=== PATIENT | female | born 1950 | race Caucasian/White ===

== ENCOUNTER 2020-11-04 08:25 | Outpatient (CLI) | payer MEDICARE, SELFPAY ==
--- NOTE | ~2020-11-04 | US_ITS ---
EXAMINATION: US thyroid DATE: 11/04/2020 10:26 INDICATION: Thyroid nodule. TECHNIQUE: Multiple ultrasound images of the thyroid were obtained. COMPARISON: Studies dated 06/27/2015, 11/26/2015 and 06/10/2017 FINDINGS: The right thyroid lobe measures 5.4 x 2.9 x 2.8 cm. The left thyroid lobe measures 2.9 x 2.3 x 1.2 c m. Thyroid isthmus measures 2 mm in thickness. With previously appeared to be a single solid nodule in the right thyroid lobe with prior nondiagnostic biopsy is comprised of 2 separate wider than tall solid, iso to slightly hypoechoic nodules with smooth margins, the more medial measuring 3.5 x 2.0 x 2.7 cm and the more lateral measuring 2.8 x 1.5 x 1.5 cm. There is a coarse calcification within the more lateral nodule. Both nodules are consistent with TI-RADS 4 nodules (moderately suspicious , FNA if >=1.5 cm, annual followup is >=1 cm). There is an additional wider than tall predominantly solid m ore hypoechoic nodule with smooth margins in the left thyroid lobe measuring 3.1 x 2.2 x 1.4 cm, also TI RADS 4. This has increased since the prior study at which time it measured 2.8 x 1.6 x 1.4 cm. Th ere is normal echotexture, echogenicity and vascular flow throughout the remainder of the thyroid gla nd. IMPRESSION: 1. Three TI-RADS 4 nodules, the 2 nodules on the right with prior nondiagnostic biopsy and one on the left which has increased in size since the prior study with prior biopsy read as suspicious for fol licular neoplasm, Hurthle cell (oncocytic) type. All 3 nodules meet criteria for ultrasound-guided bi opsy and each demonstrate features favoring selection for biopsy, one with coarse calcification altho ugh still TI-RADS 4, yielding the highest score, the second the largest in size of the 3 nodules and the third nodule with significant interval growth. It was therefore elected to biopsy all 3 nodules. See separate biopsy report for further detail. Reviewed, dictated and finalized at location A. IMPRESSION: 1. Three TI-RADS 4 nodules, the 2 nodules on the right with prior nondiagnostic biopsy and one on the left which has increased in size since the prior study w ith prior biopsy read as suspicious for follicular neoplasm, Hurthle cell (onc ocytic) type. All 3 nodules meet criteria for ultrasound-guided biopsy and each demonstrate features favoring selection for biopsy, one with coarse calcificat ion although still TI-RADS 4, yielding the highest score, the second the larges t in size of the 3 nodules and the third nodule with significant interval growt h. It was therefore elected to biopsy all 3 nodules. See separate biopsy report for further detail.
--- NOTE | ~2020-11-04 | US_ITS ---
EXAMINATION: US FNA w image guidance, US FNA additional, US FNA additional DATE: 11/04/2020 10:17 INDICATION: Thyroid nodules and unspecified disorder adrenal gland. TECHNIQUE: A time-out was performed to verify the patient's name, date of , and procedure to be performed . The procedure and its benefits and risks were discussed with the patient. Risks specifically discus sed included bleeding and infection. The patient understood the risks and agreed to proceed. The neck was prepped and draped in the usual sterile manner. Attention was first turned to the left thyroid n odule. 2 mL 1% lidocaine was used for local anesthesia. 5 passes were made with a 25G needle into th e lesion. Appropriate needle location was documented with continuous sonographic guidance. Attention was then turned to the 2 right-sided thyroid nodules. 3 mL 1% lidocaine was used for local anesthesi a. . 5 passes were made with a 25G needle into first the more lateral right thyroid nodule containin g the coarse calcification. Subsequently 5 passes were made with a 20 5G needle into the larger and m ore medial of the 2 right thyroid nodules. Appropriate needle location was documented with continuous sonographic guidance. Sterile bandages were applied. There were no immediate complications. FINDINGS: Grayscale ultrasound images demonstrate biopsy needles advanced into first the TI RADS 4 left thyroid nodule and subsequently both the more medial and then the more lateral of the two TI-RADS 4 right th yroid nodules. These nodules measured 3.1 cm, 2.8 cm and 3.5 cm in maximal diameters respectively on the immediately prior thyroid ultrasound. IMPRESSION: 1. Successful ultrasound-guided fine needle aspiration of an enlarging 3.1 cm TI-RADS 4 left thyroid nodule. 2. Successful ultrasound-guided fine-needle laceration of a more medial 3.5 cm TI-RADS 4 right thyroi d nodule. 3. Successful ultrasound-guided fine-needle laceration of a more lateral 2.8 cm coarse calcification containing TI-RADS 4 right thyroid nodule. Reviewed, dictated and finalized at location A. IMPRESSION: 1. Successful ultrasound-guided fine needle aspiration of an enlarging 3.1 cm TI-RADS 4 left thyroid nodule. 2. Successful ultrasound-guided fine-needle laceration of a more medial 3.5 cm TI-RADS 4 right thyroid nodule. 3. Successful ultrasound-guided fine-needle laceration of a more lateral 2.8 cm coarse calcification containing TI-RADS 4 right thyroid nodule. IMPRESSION: 1. Successful ultrasound-guided fine needle aspiration of an enlarging 3.1 cm TI-RADS 4 left thyroid nodule. 2. Successful ultrasound-guided fine-needle laceration of a more medial 3.5 cm TI-RADS 4 right thyroid nodule. 3. Successful ultrasound-guided fine-needle laceration of a more lateral 2.8 cm coarse calcification containing TI-RADS 4 right thyroid nodule.
== END 2020-11-04 08:26 | disposition home or self-care (01) ==
LOC: ANHIMG 08:31
PROVIDERS: PCP Family Medicine; Visit Provider Internal Medicine Endocrinology, Diabetes & Metabolism
DX: E04.1 Nontoxic single thyroid nodule (principal); E27.8 Other specified disorders of adrenal gland; E05.90 Thyrotoxicosis, unspecified without thyrotoxic crisis or storm; M81.0 Age-related osteoporosis without current pathological fracture
CPT/HCPCS: 10005; 10006; 76536; 88173; 88305

== ENCOUNTER 2022-02-04 00:36 | Day surgery (SDC) | payer MEDICARE, SELFPAY ==
[2021-12-18 14:15] VITALS: BMI 23.0
[2022-01-19 14:34] VITALS: BMI 23.0
[2022-02-04 11:05] VITALS: BP 126/60; PULSE 90; RESP 20; TEMP 36.3; O2SAT 98; BMI 22.4
[2022-02-04] MEDS: LACTATED RINGERS 1,000 ML 150 ML IV CONT (11:15)
--- NOTE | 2022-02-04 12:13 | WPDANESEPPF ---
Anes - Initial Pre Proc Eval Procedure: Operation Date: 02/04/22 12:30 Proposed Procedures p Esophagogastroduodenoscopy & Screening Colonoscopy - Isaac Dunbar MD Date/Time: 02/04/22 12:13 Surgeon: Isaac Dunbar MD Pre Op Diagnosis: dysphagia, hx colon polyps Patient Data Age: 71 Gender: F Height: 1.65 m Weight: 61 kg Last Vital Signs Temp 97.4 F L 02/04/22 11:05 Pulse 90 02/04/22 11:05 Resp 20 02/04/22 11:05 BP 126/60 02/04/22 11:05 Pulse Ox 98 02/04/22 11:05 O2 Del Method Room Air 02/04/22 11:05 Allergies Allergy/AdvReac Type Severity Reaction Status Date / Time Penicillins Allergy Unknown UNKOWN Verified 02/04/22 10:58 Sulfa (Sulfonamide Allergy Unknown UNKNOWN Verified 02/04/22 10:58 Antibiotics) Home Medications Medication Instructions Recorded Confirmed Type amlodipine 5 mg tablet 5 mg PO DAILY 10/24/19 12/18/21 History metoprolol succinate 50 mg 75 mg PO DAILY 10/29/20 12/18/21 History tablet,extended release 24 hr alendronate 70 mg tablet (Fosamax) 70 mg PO WEEKLY 08/12/21 12/18/21 History atorvastatin 10 mg tablet (Lipitor) 10 mg PO QHS 08/12/21 12/18/21 History methimazole 5 mg tablet See Rx Instructions .Route 12/17/21 12/18/21 Rx .COMPLEX #90 tabs Patient hx anesthesia problems: none Family hx anesthesia problems: none Results Review: All pre-operative results and documents have been reviewed as part of the pre-operative evaluation. [facility] Surgical History Surgical History Hx of cholecystectomy Family History Family History Other Family history of cardiovascular disease Family history of hearing loss Family history of malignant neoplasm Family history of mental disorder Family history of osteoporosis Hypertension Social History Social History Smoking status: Never smoker Alcohol intake: current Substance use type: does not use Living arrangements: with family Katelyn Mccartney Final PreProcedure Day of Procedure 02/04/22 12:13 Patient weight: normal Heart: regular rate and rhythm Lungs: clear to auscultation Airway: Mallampati scale class II Neurological: alert and oriented Last oral intake: >/= 8 hours ASA classification: III Emergent: no Anesthetic plan: proceed Anesthesia type and monitoring: general GIVS and standard monitoring Results Review: All pre-operative results and documents have been reviewed as part of the pre-operative evaluation. Informed Consent: The patient's anesthetic plan and its attendant risks and benefits were discussed with the patient/family/POA. Questions were solicited and answers provided to the satisfaction of the patient/family/POA.
--- NOTE | 2022-02-04 12:26 | PM.HPGS ---
History of Present Illness History of Present Illness Consent: Risks, benefits, and alternatives have been discussed and questions answered. Patient agrees to proceed with procedure. Chief complaint: dysphagia, hx colon polyps Narrative: Yasmeen Garcia is a 71 year old female with history of esophageal ring dilated few years ago lately with dysphagia again, also mother had esophageal cancer. Brother had colon cancer, last colonoscopy in 2017. Review of Systems Constitutional: Constitutional: Denies headache(s) and Denies weakness Eyes: Eyes: Denies blurry vision ENT: Reports Normal hearing present, Denies headache(s) and Denies neck pain Cardiovascular: Cardiovascular: Denies chest pain and Denies dyspnea Respiratory: Respiratory: Denies dyspnea Gastrointestinal: Gastrointestinal: Reports no additional gastrointestinal complaints Genitourinary: Genitourinary: Denies dysuria Musculoskeletal: Musculoskeletal: Denies neck pain Integumentary/Breasts: Skin/Breast: Denies dry skin Neurologic: Reports Normal hearing present, Denies headache(s) and Denies weakness Psychiatric: Psychiatric: Denies anxiety Endocrine: Endocrine: Denies change in body appearance Hematologic/Lymphatic: Hematologic/Lymphatic: Denies easy bleeding Allergic/Immunologic: Allergic/Immunologic: Denies urticaria PMFSH Past Medical History Medical History (Updated 02/04/22 @ 12:27 by Isaac Dunbar MD) Dysphagia Family history of colon cancer Surgical History Surgical History Hx of cholecystectomy Family History Family History Other Family history of cardiovascular disease Family history of hearing loss Family history of malignant neoplasm Family history of mental disorder Family history of osteoporosis Hypertension Social History Social History Smoking status: Never smoker Alcohol intake: current Substance use type: does not use Living arrangements: with family Meds Home Medications and Allergies Home Medications Medication Instructions Recorded Confirmed Type amlodipine 5 mg tablet 5 mg PO DAILY 10/24/19 12/18/21 History metoprolol succinate 50 mg 75 mg PO DAILY 10/29/20 12/18/21 History tablet,extended release 24 hr alendronate 70 mg tablet (Fosamax) 70 mg PO WEEKLY 08/12/21 12/18/21 History atorvastatin 10 mg tablet (Lipitor) 10 mg PO QHS 08/12/21 12/18/21 History methimazole 5 mg tablet See Rx Instructions .Route 12/17/21 12/18/21 Rx .COMPLEX #90 tabs Allergies Allergy/AdvReac Type Severity Reaction Status Date / Time Penicillins Allergy Unknown UNKOWN Verified 02/04/22 10:58 Sulfa (Sulfonamide Allergy Unknown UNKNOWN Verified 02/04/22 10:58 Antibiotics) Vital Signs Vital Signs - 24 hr 02/04/22 11:05 Temperature 97.4 F L Pulse Rate 90 Respiratory Rate 20 Blood Pressure 126/60 Pulse Oximetry 98 Oxygen Delivery Room Air Exam Const: General: comfortable and no acute distress HENMT: Face/Nose/Sinus: Normal nares present Eyes: General: appearance normal, both eyes and all related structures Neck: Neck: no JVD Resp: Auscultation: clear to auscultation bilaterally Cardio: Rate: regular rate Rhythm: regular rhythm GI: Inspection: non-distended GI Palp: Yes Soft to palpation Skin: General skin exam: normal color Neuro: General: gait normal Speech: normal speech Extrem: General: normal to inspection Psych: Mental Status: mental status grossly normal Assessment and Plan Assessment and plan (1) Dysphagia: Code(s): R13.10 - Dysphagia, unspecified Status: Acute Assessment and Plan: egd, history of dilation in the past (2) Family history of colon cancer: Code(s): Z80.0 - Family history of malignant neoplasm of digestive organs Status:
--- NOTE | 2022-02-04 12:45 | SUR.OPER ---
egd ended at 1238, colonoscopy started at 1245
[2022-02-04 13:01] VITALS: BP 118/76; PULSE 88; RESP 17; O2SAT 100
[2022-02-04 13:11] VITALS: BP 129/72; PULSE 84; RESP 23; O2SAT 100
[2022-02-04 13:21] VITALS: BP 124/76; PULSE 83; RESP 21; O2SAT 100
== END 2022-02-04 13:30 | disposition home or self-care (01) ==
PROVIDERS: PCP Family Medicine; Visit Provider Internal Medicine Gastroenterology
PROC: 0DJ08ZZ Inspection of Upper Intestinal Tract, Via Natural or Artificial Opening Endoscopic (ICD-10-PCS; CPT 43235; principal; 2022-02-04 12:30)
DX: Z12.11 Encounter for screening for malignant neoplasm of colon (principal); K63.5 Polyp of colon; K57.30 Diverticulosis of large intestine without perforation or abscess without bleeding; K64.8 Other hemorrhoids; Z80.0 Family history of malignant neoplasm of digestive organs; R13.10 Dysphagia, unspecified; K29.70 Gastritis, unspecified, without bleeding
CPT/HCPCS: 45380; 43239; 43248; 88305; J2704; J7120

== ENCOUNTER 2022-09-01 13:22 | Outpatient (CLI) | payer MEDICARE, SELFPAY ==
--- NOTE | ~2022-09-01 | US_ITS ---
EXAMINATION: US thyroid DATE: 09/01/2022 14:09 INDICATION: Thyrotoxicosis TECHNIQUE: Multiple ultrasound images of the thyroid were obtained. COMPARISON: 02/04/2021 FINDINGS: The right thyroid lobe measures 5.1 x 2.9 x 3.7 cm. The left thyroid lobe measures 4.5 x 1.9 x 2.2 c m. There is diffuse coarsened echotexture throughout the thyroid. 4.4 cm wider than tall solid hypoe choic nodule with smooth margins and internal coarse shadowing calcification (TI-RADS 4, moderately s uspicious , FNA if >=1.5 cm, annual followup is >=1 cm). On prior imaging this appeared to be compose d of a conglomeration of 2 separate nodules which together appear unchanged in size when compared wit h the current study with prior biopsy both components of the nodule healing pathology consistent wit h benign follicular nodule . In the left thyroid nodule there is a 4.0 x 1.4 x 2.5 cm wider than tall hypoechoic solid nodule with smooth margins and without echogenic foci, also TI-RADS 4, which is mil dly increased from 3.1 x 1.4 x 2.2 cm pelvis with prior benign biopsy consistent with benign follicu lar nodule . On cine grayscale imaging there are a few additional <5 mm hypoechoic nodules the left t hyroid. IMPRESSION: 1. Multinodular goiter with no significant change in bilateral TI RADS 4 thyroid nodules the largest measuring 4.4 cm on the right (previously measured as 2 separate nodules) and 4.0 cm on the left. Bio psy of the left nodule and both components of the right nodule yielded benign pathology consistent w ith benign follicular nodule. Reviewed, dictated and finalized at location A. IMPRESSION: 1. Multinodular goiter with no significant change in bilateral TI RADS 4 thyroi d nodules the largest measuring 4.4 cm on the right (previously measured as 2 s eparate nodules) and 4.0 cm on the left. Biopsy of the left nodule and both com ponents of the right nodule yielded benign pathology consistent with benign fo llicular nodule.
== END 2022-09-01 13:23 | disposition home or self-care (01) ==
PROVIDERS: PCP Family Medicine; Visit Provider Internal Medicine Endocrinology, Diabetes & Metabolism
DX: E05.90 Thyrotoxicosis, unspecified without thyrotoxic crisis or storm (principal); E27.8 Other specified disorders of adrenal gland; E04.2 Nontoxic multinodular goiter
CPT/HCPCS: 76536

== ENCOUNTER 2023-12-17 15:33 | Outpatient (CLI) | payer MEDICARE, SELFPAY ==
--- NOTE | ~2023-12-17 | US_ITS ---
EXAMINATION: US thyroid DATE: 12/17/2023 16:09 INDICATION: Nontoxic single thyroid nodule. TECHNIQUE: Multiple ultrasound images of the thyroid were obtained. COMPARISON: Ultrasound 09/01/2022, 11/04/20 FINDINGS: The right thyroid lobe measures 5.9 x 2.7 x 3.9 cm. The left thyroid lobe measures 4.7 x 2.1 x 2.4 c m. In the left thyroid lobe, there is a 4.5 cm predominantly solid, hypoechoic, wider than tall nodu le with smooth margin without echogenic foci (TI-RADS TR4), stable from 11/04/20. In the right thyroid lobe, there is a 4.1 cm predominantly solid, hypoechoic, wider than tall nodule with smooth margin w ithout echogenic foci (TR4), stable from 11/04/20. Biopsy of these nodules was benign on 11/04/2020. IMPRESSION: 1. Stable benign thyroid nodules. Reviewed, dictated and finalized at location A.
== END 2023-12-17 15:34 | disposition home or self-care (01) ==
LOC: ANHIMG 15:35
PROVIDERS: PCP Physician Assistant; Visit Provider Internal Medicine Endocrinology, Diabetes & Metabolism
DX: E04.2 Nontoxic multinodular goiter (principal)
CPT/HCPCS: 76536